=== PATIENT | male | born 1970 | race Hispanic/Latino ===

== ENCOUNTER 2025-04-13 09:53 | Observation (INO) | payer OTHER ==
[2025-04-13] VITALS (10 sets, daily range): BP systolic 129–140; BP diastolic 88–89; PULSE 63–77; RESP 16–20; TEMP 98.3–98.7; O2SAT 97–99
[~2025-04-13] VITALS: Ht 165.1 cm; Wt 96.6 kg
[2025-04-13] MEDS: ONDANSETRON HCL INJ 2MG/ML 2ML 2 MG/ML VIAL IV STA (10:28)
[2025-04-13] MEDS: SODIUM CHLORIDE 0.9% 1000ML 1,000 ML IV STA (10:28)
[2025-04-13] MEDS: Morphine 4mg INJECTION 4 MG/ML INJ IV STA (10:33)
[2025-04-13 11:03] LABS: BASOPHILS % 0.2 % (0.0-1.0); EOSINOPHILS # (AUTO) 0.1 (0.0-0.4); EOSINOPHILS % 0.9 % (0.0-6.0); HEMATOCRIT 45.2 % (38.2-49.6); HEMOGLOBIN 15.2 g/dL (14.0-18.0); LYMPHOCYTES # (AUTO) 1.7 (1.0-3.2); LYMPHOCYTES % 13.6 % (18.0-39.1); MEAN CORPUSCULAR HEMOGLOBIN 30.3 pg (28-32); MEAN CORPUSCULAR HGB CONC 33.6 g/dL (31-35); MONOCYTES # (AUTO) 0.8 (0.2-0.8); MONOCYTES % 6.7 % (4.4-11.3); NEUTROPHILS # (AUTO) 9.7 (2.1-6.9); NEUTROPHILS % 78.2 % (38.7-80.0); PLATELET COUNT 255 x10e3/uL (140-360); RED BLOOD COUNT 5.02 x10e6/uL (4.3-5.7); RED CELL DISTRIBUTION WIDTH 12.3 % (11.7-14.4); WHITE BLOOD COUNT 12.38 x10e3/uL (4.8-10.8)
[2025-04-13 11:16] LABS: INR 0.88; PROTHROMBIN TIME 12.8 seconds (11.9-14.5)
[2025-04-13 11:17] LABS: PARTIAL THROMBOPLASTIN TIME 31.4 seconds (23.8-35.5)
[2025-04-13 11:28] LABS: ALBUMIN 4.1 g/dL (3.5-5.0); ALBUMIN/GLOBULIN RATIO 1.2 (0.8-2.0); BILIRUBIN,TOTAL 0.8 mg/dL (0.2-1.2); CALCIUM 9.3 mg/dL (8.4-10.2); CREATININE, SERUM 0.98 mg/dL (0.72-1.25); MAGNESIUM 1.8 MG/DL (1.3-2.1); TOTAL PROTEIN 7.4 g/dL (6.5-8.1)
[2025-04-13 11:37] LABS: TROPONIN I 0.011 ng/mL (0-0.300)
[2025-04-13] MEDS: METOPROLOL TARTRATE 25 MG TAB PO ONE (11:54)
[2025-04-13] MEDS ORDERED: NITROGLYCERIN 0.4 MG SUBL SL PRN (12:00)
[2025-04-13] MEDS ORDERED: Morphine 2mg Syringe 2 MG/ML SYR IV PRN ×2 (12:00→15:45)
[2025-04-13] MEDS ORDERED: ONDANSETRON HCL INJ 2MG/ML 2ML 2 MG/ML VIAL IV PRN (12:00)
[2025-04-13] MEDS ORDERED: ALBUTEROL/IPRATROPIUM 3 ML NEB NEB PRN (12:45)
[2025-04-13] MEDS ORDERED: DEXTROSE 50% SYRINGE 50 ML IV PRN (12:45)
[2025-04-13] MEDS ORDERED: MELATONIN 5 MG TABLET PO PRN (12:45)
[2025-04-13] MEDS ORDERED: DOCUSATE SODIUM 100 MG CAP PO PRN (12:45)
[2025-04-13] MEDS ORDERED: BENZONATATE 100 MG CAP PO PRN (12:45)
[2025-04-13] MEDS ORDERED: DIPHENHYDRAMINE HCL 25 MG CAP PO PRN (12:45)
[2025-04-13] MEDS ORDERED: LIDOCAINE 4% PATCH TP PRN (12:45)
[2025-04-13] MEDS ORDERED: POTASSIUM CHLORIDE 20 MEQ TAB CR PO PRN (12:45)
[2025-04-13] MEDS ORDERED: HYDRALAZINE HCL 20 MG/ML VIAL IV PRN (12:45)
[2025-04-13] MEDS ORDERED: SIMETHICONE 80 MG CHEW PO PRN (12:45)
[2025-04-13] MEDS ORDERED: LOSARTAN POTASS25 MG PO (14:16)
[2025-04-13] MEDS ORDERED: OZEMPIC1 MG/0.71 SQ (14:16)
[2025-04-13] MEDS: FAMOTIDINE 20 MG/2 ML VIAL IV SCH (14:51)
[2025-04-13] MEDS: ENOXAPARIN SOD INJ 40 MG/0.4 ML SYR SC SCH (17:27)
[2025-04-13] MEDS: ACETAMINOPHEN 325 MG TAB PO PRN (17:30)
[2025-04-13] MEDS: ATORVASTATIN 40 MG TAB PO SCH (20:28)
[2025-04-14] VITALS (15 sets, daily range): BP systolic 126–147; BP diastolic 79–95; PULSE 63–75; RESP 12–20; TEMP 96.8–98.2; O2SAT 95–100
[2025-04-14 00:24] LABS: TROPONIN I 0.004 ng/mL (0-0.300)
[2025-04-14 06:06] LABS: BASOPHILS % 0.4 % (0.0-1.0); EOSINOPHILS # (AUTO) 0.2 (0.0-0.4); EOSINOPHILS % 2.8 % (0.0-6.0); HEMATOCRIT 40.9 % (38.2-49.6); HEMOGLOBIN 13.8 g/dL (14.0-18.0); LYMPHOCYTES # (AUTO) 2.2 (1.0-3.2); LYMPHOCYTES % 27.9 % (18.0-39.1); MEAN CORPUSCULAR HEMOGLOBIN 30.5 pg (28-32); MEAN CORPUSCULAR HGB CONC 33.7 g/dL (31-35); MEAN CORPUSCULAR VOLUME 90.3 fL (81-99); MONOCYTES # (AUTO) 0.7 (0.2-0.8); MONOCYTES % 8.5 % (4.4-11.3); NEUTROPHILS # (AUTO) 4.8 (2.1-6.9); PLATELET COUNT 219 x10e3/uL (140-360); RED BLOOD COUNT 4.53 x10e6/uL (4.3-5.7); RED CELL DISTRIBUTION WIDTH 12.1 % (11.7-14.4)
[2025-04-14 06:44] LABS: ALBUMIN 3.4 g/dL (3.5-5.0); ALBUMIN/GLOBULIN RATIO 1.2 (0.8-2.0); ANION GAP 11.6 mmol/L (8-16); BILIRUBIN,TOTAL 0.7 mg/dL (0.2-1.2); CALCIUM 8.6 mg/dL (8.4-10.2); CHOL/HDL RATIO 2.7 (3.9-4.7); CREATININE, SERUM 1.01 mg/dL (0.72-1.25); POTASSIUM 3.6 mmol/L (3.5-5.1); TOTAL PROTEIN 6.3 g/dL (6.5-8.1)
[2025-04-14 07:03] LABS: MAGNESIUM 1.7 MG/DL (1.3-2.1)
[2025-04-14 07:04] LABS: CREATINE KINASE 124 IU/L (30-200)
[2025-04-14 07:19] LABS: TROPONIN I < 0.001 ng/mL (0-0.300)
[2025-04-14 07:26] LABS: THYROID STIMULATING HORMONE 2.415 uIU/mL (0.350-4.940)
[2025-04-14] MEDS: PANTOPRAZOLE SOD 40 MG TABEC PO SCH (07:30)
[2025-04-14] MEDS: ASPIRIN 81 MG ENTERIC COATED PO SCH (09:00)
[2025-04-14] MEDS: LOSARTAN POTASSIUM 25 MG TAB PO SCH (09:00)
[2025-04-14] MEDS: HEPARIN SOD/SOD CHLORIDE 2,000 ML ONE (12:42)
[2025-04-14] MEDS: NITROGLYCERIN/D5W 200 MCG/ML 250 ML ONE (12:42)
[2025-04-14] MEDS: VERAPAMIL HCL 2.5 MG/ML 2 ML VIAL ONE (12:42)
[2025-04-14] MEDS: HEPARIN SOD (PORCINE) 1000 UNIT/ML 30ML ONE (12:42)
[2025-04-14] MEDS: LIDOCAINE HCL 2% LOCAL 20 ML VIAL ONE (12:42)
[2025-04-14] MEDS: FAMOTIDINE 20 MG/2 ML VIAL IV ONE (12:43)
[2025-04-14] MEDS: METHYLPREDNISOLONE SOD SUCC 125 MG/2ML VIAL ONE (12:43)
[2025-04-14] MEDS: SODIUM CHLORIDE 0.9% 1000ML 1,000 ML ONE (12:43)
[2025-04-14] MEDS: DIPHENHYDRAMINE HCL INJ 50 MG/ML VIAL ONE (12:43)
[2025-04-14] MEDS: IOPAMIDOL 370 MG/ML 100 ML INFUS..BTL INJ ONE (12:43)
[2025-04-14] MEDS: ONDANSETRON HCL INJ 2MG/ML 2ML 2 MG/ML VIAL ONE (12:43)
[2025-04-14] MEDS: FENTANYL CITRATE/PF 100MCG/2 ML INJ ONE (12:44)
[2025-04-14] MEDS: MIDAZOLAM HCL 2 MG/2 ML VIAL ONE (12:44)
[2025-04-14] MEDS ORDERED: ASPIRIN EC81 MG PO (13:42)
[2025-04-14] MEDS ORDERED: LIPITOR10 MG PO (13:43)
== END 2025-04-14 14:30 | disposition home or self-care (01) ==
LOC: ER 09:56 → ERHOLD 11:48 → MED/SURG2 12:30
PROVIDERS: ADMIT Internal Medicine; ATTEND Internal Medicine
DX: R07.89 Other chest pain (principal); I25.10 Atherosclerotic heart disease of native coronary artery without angina pectoris; I10 Essential (primary) hypertension; E78.5 Hyperlipidemia, unspecified; E66.9 Obesity, unspecified; Z68.35 Body mass index [BMI] 35.0-35.9, adult; E11.9 Type 2 diabetes mellitus without complications; Z85.528 Personal history of other malignant neoplasm of kidney; Z90.5 Acquired absence of kidney; Z88.8 Allergy status to other drugs, medicaments and biological substances; Z79.85 Long-term (current) use of injectable non-insulin antidiabetic drugs; F12.10 Cannabis abuse, uncomplicated
CPT/HCPCS: 36415 ×2; 71045; 76937; 80053 ×2; 80061; 82550 ×2; 82948 ×2; 83036; 83735 ×2; 83880; 84443; 84484 ×2; 85025 ×2; 85379; 85610; 85730; 93005; 93306; 93458; 94760; 94799; 99284; C1887; G0378 ×2; J1200; J1308 ×2; J1644; J1650; J2003; J2250; J2270; J2405; J2919; J3010; J7030 ×2; Q9967; 99152; J2470